=== PATIENT | female | born 2000 | race Hispanic/Latino ===

== ENCOUNTER 2023-03-30 13:21 | Emergency (ER) | payer SELFPAY ==
[~2023-03-30] VITALS: Ht 165.1 cm; Wt 54.0 kg
[2023-03-30 17:37] LABS: BASO % 0.3 % (0.0-1.0); EOS # 0.1 10^3/uL (0.0-0.5); EOS % 1.9 % (0.0-3.0); HEMATOCRIT 38.2 % (36.0-47.0); HEMOGLOBIN 13.3 g/dl (12.0-15.5); LYMPH # 1.7 10^3/uL (1.5-5.0); LYMPH % 23.5 % (24.0-44.0); MEAN CORPUSCULAR HEMOGLOBIN 30.2 pg (27.0-33.0); MEAN CORPUSCULAR HGB CONC 34.8 g/dl (32.0-36.5); MEAN CORPUSCULAR VOLUME 86.8 fl (80.0-96.0); NEUTROPHILS # 4.5 10^3/uL (1.5-8.5); NEUTROPHILS % 60.8 % (36.0-66.0); PLATELET COUNT, AUTOMATED 298 10^3/uL (150-450); WHITE BLOOD COUNT 7.4 10^3/uL (4.0-10.0)
[2023-03-30] MEDS ORDERED: ISOVUE-370 76% 100ML VIAL As Ordered ONE (17:57)
[2023-03-30 18:05] LABS: ALBUMIN 3.4 G/DL (3.2-5.2); BILIRUBIN,DIRECT 0.1 MG/DL (<0.4); BILIRUBIN,TOTAL 0.4 MG/DL (0.3-1.2); TOTAL PROTEIN 6.7 G/DL (5.7-8.2)
[2023-03-30 20:56] VITALS: BP 99/60; TEMP 96.8; O2SAT 100
== END 2023-03-30 21:20 | disposition home or self-care (01) ==
LOC: M ED 13:21
DX: K52.9 Noninfective gastroenteritis and colitis, unspecified (principal); N83.292 Other ovarian cyst, left side
CPT/HCPCS: 74177; 76856; 80047; 80076; 81001; 83690; 84702; 85025; 93976; 99284; Q9967